=== PATIENT | female | born 2000 | race African-American/Black ===

== ENCOUNTER 2023-04-02 12:34 | Emergency (ER) | payer OTHER ==
[2023-04-02 13:47] VITALS: BP 114/60; PULSE 67; RESP 18; TEMP 98.6; BMI 16.8
[2023-04-02] MEDS ORDERED: DIPHTH,PERTUSS(ACELL),TET 0.5 ML DISP.SYRIN IM ONE (14:38)
[2023-04-02] MEDS: DIPHTH,PERTUSS(ACELL),TET 0.5 ML DISP.SYRIN IM ONE (14:40)
== END 2023-04-02 16:19 | disposition home or self-care (01) ==
LOC: JERFT 12:34
PROC: 0HQMXZZ Repair Right Foot Skin, External Approach (ICD-10-PCS; principal; 2023-04-02)
PROC: 3E0234Z Introduction of Serum, Toxoid and Vaccine into Muscle, Percutaneous Approach (ICD-10-PCS; 2023-04-02)
DX: S91.311A Laceration without foreign body, right foot, initial encounter (principal); W26.8XXA Contact with other sharp object(s), not elsewhere classified, initial encounter
CPT/HCPCS: 12001-25; 90471; 90715; 99283-25

== ENCOUNTER 2023-04-18 17:09 | Emergency (ER) | payer OTHER ==
[2023-04-18 17:24] VITALS: BP 110/63; PULSE 88; RESP 18; TEMP 98.4; BMI 16.8
== END 2023-04-18 19:12 | disposition home or self-care (01) ==
LOC: JERFT 17:09 → JER 17:09 → JERFT 19:12
DX: Z48.02 Encounter for removal of sutures (principal)
CPT/HCPCS: 99281-25